=== PATIENT | male | born 2000 ===

== ENCOUNTER 2021-03-16 18:18 | Emergency (ER) | payer SELFPAY ==
[2021-03-16] MEDS ORDERED: Acetaminophen/oxyCODONE 325-5 MG Tab PO ONE (18:19)
[2021-03-16] MEDS ORDERED: Ondansetron 4 MG Tab.DIS PO ONE (18:19)
[2021-03-16] MEDS ORDERED: Ondansetron 4 MG/2 ML SDV IVPUSH ONE (18:32)
[2021-03-16] MEDS ORDERED: HYDROmorphone 1 MG/ML Syringe IVPUSH ONE (18:32)
[2021-03-16] MEDS ORDERED: Sodium Chloride 0.9% 1,000 ML IV ONE (18:40)
[2021-03-16] MEDS ORDERED: ceFAZolin 1 GM in Sodium Chloride 0.9% 50 ML IV ONE (18:46)
[2021-03-16] MEDS ORDERED: Diphtheria,Pertussis(Acell),Tetanus Vaccine 0.5 ML Syringe IM ONE (18:47)
[2021-03-16] MEDS ORDERED: Lidocaine 1% 30 ML SDV INJECT ONE (19:11)
[2021-03-16 19:47] VITALS: BP 139/71; PULSE 91
[2021-03-16] MEDS ORDERED: Ondansetron 4 MG Tab.DIS ONE (19:55)
[2021-03-16] MEDS ORDERED: Acetaminophen/oxyCODONE 325-5 MG Tab ONE (19:56)
== END 2021-03-16 20:04 | disposition home or self-care (01) ==
LOC: DL.ED 18:18
DX: S68.122A Partial traumatic metacarpophalangeal amputation of right middle finger, initial encounter (principal); Z23 Encounter for immunization; Z91.048 Other nonmedicinal substance allergy status; W23.0XXA Caught, crushed, jammed, or pinched between moving objects, initial encounter
CPT/HCPCS: 64450; 73140; 90471; 90715; 96365; 96375; 99284; 99285; A9270; J0690; J1170; J2405; J7030